=== PATIENT | male | born 1995 | race Hispanic/Latino ===

== ENCOUNTER 2021-05-29 16:59 | Emergency (ER) | payer OTHER ==
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
[2021-05-29 18:16] VITALS: BP 141/75; TEMP 98.1; O2SAT 99
== END 2021-05-29 18:02 | disposition home or self-care (01) ==
LOC: ER 16:59
DX: S50.312A Abrasion of left elbow, initial encounter (principal); V49.40XA Driver injured in collision with unspecified motor vehicles in traffic accident, initial encounter
CPT/HCPCS: 70450; 72125; 71260; 74177; 99284; Q9967

== ENCOUNTER 2021-06-06 20:35 | Emergency (ER) | payer SELFPAY ==
[2021-06-06] MEDS ORDERED: HYDROCODONE/APAP 7.5/325 MG TAB ONE (22:07)
[2021-06-06] MEDS ORDERED: KETOROLAC 30 MG/ML INJ ONE (22:08)
[2021-06-06] MEDS ORDERED: methocarbamoL 500 MG TAB ONE (22:09)
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
[2021-06-07 01:52] VITALS: BP 114/77; TEMP 94.4; O2SAT 97
--- NOTE | 2021-06-07 16:37 | RAD REPORT ---
EXAM DESCRIPTION: CT - Head Brain Wo Cont - 06/07/2021 3:54 am CLINICAL HISTORY: 24 years Male HEADACHE COMPARISON: None. TECHNIQUE: Contiguous axial CT images obtained through the brain without IV contrast. This exam was performed according to our department optimization program which includes automated exp osure control, adjustment of the mA and/or kv according to patient size and/or use of iterative recon struction technique. FINDINGS: The ventricles and sulci appear unremarkable. No abnormal areas of decreased density are identified. No mass lesions. No acute hemorrhage. Mild mucosal thickening/mucous retention cyst in the right maxillary sinus. No depressed calvarial fractures. IMPRESSION: No acute intracranial abnormality is identified. Electronically signed by: Ray Chavez MD 06/06/2021 10:55 PM LAY OUT MACHINE OPERATOR Due to temporary technical issues with the PACS/Fluency reporting system, reports are being signed by the in house radiologists without review as a courtesy to insure prompt reporting. The interpreting radiologist is fully responsible for the content of the report.
--- NOTE | 2021-06-07 16:43 | RAD REPORT ---
EXAM DESCRIPTION: CT - Soft Tissue Neck W/Contr - 06/07/2021 3:55 am CLINICAL HISTORY: 24 years Male Pain; Sore throat COMPARISON: None. TECHNIQUE: Contiguous axial images obtained through the neck following IV contrast. Reformatted imag es obtained. This exam was performed according to our department optimization program which includes automated exp osure control, adjustment of the mA and/or kv according to patient size and/or use of iterative recon struction technique. FINDINGS: The visualized intracranial structures and post septal orbits appear grossly unremarkable. The parotid glands, submandibular glands and thyroid gland appear unremarkable. The lung apices are clear. Questionable mild prominence of the palatine tonsillar tissues. Clinical correlation recommended to e xclude tonsillitis. No fluid collections to suggest a tonsillar or peritonsillar abscess collection. Scattered lymph nodes in the neck likely reactive. Mild mucosal thickening or mucous retention cysts in the inferior maxillary sinuses greater on the ri ght. IMPRESSION: Questionable mild prominence of the palatine tonsillar tissues. Clinical correlation rec ommended to exclude tonsillitis. No fluid collections to suggest a tonsillar or peritonsillar abscess collection. Electronically signed by: Ray Chavez MD 06/06/2021 11:02 PM SENIOR RELIABILITY ENGINEER Due to temporary technical issues with the PACS/Fluency reporting system, reports are being signed by the in house radiologists without review as a courtesy to insure prompt reporting. The interpreting radiologist is fully responsible for the content of the report.
== END 2021-06-07 01:21 | disposition home or self-care (01) ==
LOC: ER 20:35 → EDBD 20:35 → ER 06-07 01:21
DX: G44.319 Acute post-traumatic headache, not intractable (principal); F07.81 Postconcussional syndrome; J02.9 Acute pharyngitis, unspecified; V49.9XXA Car occupant (driver) (passenger) injured in unspecified traffic accident, initial encounter
CPT/HCPCS: 70450; 70491; 87070; 87081; 96374; 96375; 99284; Q9967